=== PATIENT | male | born 2000 | race Caucasian/White ===

== ENCOUNTER 2018-07-21 11:32 | Emergency (ER) | payer OTHER ==
[2018-07-21] MEDS: DIPHTH/TET/ACEL PERTUSS (ADULT) 0.5 ML VIAL IM* (12:15)
== END 2018-07-21 12:27 | disposition home or self-care (01) ==
LOC: FTE 11:32
DX: S61.412A Laceration without foreign body of left hand, initial encounter (principal); W26.0XXA Contact with knife, initial encounter; Y92.9 Unspecified place or not applicable; Z23 Encounter for immunization
CPT/HCPCS: 12001; 90471; 90715; 99283-25

== ENCOUNTER 2018-07-23 06:33 | Emergency (ER) | payer OTHER | END 2018-07-23 07:28 | disposition home or self-care (01) | LOC: FTE 06:33 | DX: Z48.02 Encounter for removal of sutures (principal) | CPT/HCPCS: 99281; Z7502 ==

== ENCOUNTER 2018-07-28 10:38 | Emergency (ER) | payer OTHER | END 2018-07-28 11:41 | disposition home or self-care (01) | LOC: FTE 10:38 | DX: S61.411D Laceration without foreign body of right hand, subsequent encounter (principal); X58.XXXA Exposure to other specified factors, initial encounter; Y92.9 Unspecified place or not applicable | CPT/HCPCS: 99281; Z7502 ==

== ENCOUNTER 2018-08-04 07:13 | Emergency (ER) | payer OTHER | END 2018-08-04 08:32 | disposition home or self-care (01) | LOC: FTE 07:13 | DX: Z48.02 Encounter for removal of sutures (principal) | CPT/HCPCS: 99283 ==

== ENCOUNTER 2018-11-02 10:35 | Emergency (ER) | payer OTHER | END 2018-11-02 14:13 | disposition home or self-care (01) | LOC: FTE 10:35 | DX: H92.02 Otalgia, left ear (principal) | CPT/HCPCS: 99283; Z7502 ==